=== PATIENT | female | born 1990 | race African-American/Black ===

== ENCOUNTER 2021-10-12 10:44 | Outpatient (CLI) | payer OTHER | END 2021-10-12 12:00 | disposition home or self-care (01) | LOC: PRENATAL 10:44 | PROVIDERS: ATTEND Obstetrics & Gynecology Maternal & Fetal Medicine | DX: O36.80X0 Pregnancy with inconclusive fetal viability, not applicable or unspecified (principal); Z36.0 Encounter for antenatal screening for chromosomal anomalies; Z3A.13 13 weeks gestation of pregnancy ==

== ENCOUNTER 2021-12-11 08:05 | Outpatient (CLI) | payer OTHER | END 2021-12-11 09:30 | disposition home or self-care (01) | LOC: PRENATAL 08:05 | PROVIDERS: ATTEND Obstetrics & Gynecology Maternal & Fetal Medicine | DX: O35.0XX0 Maternal care for (suspected) central nervous system malformation in fetus, not applicable or unspecified (principal); O35.3XX0 Maternal care for (suspected) damage to fetus from viral disease in mother, not applicable or unspecified; O99.210 Obesity complicating pregnancy, unspecified trimester; Z91.013 Allergy to seafood; Z3A.21 21 weeks gestation of pregnancy ==

== ENCOUNTER 2021-12-17 09:31 | Day surgery (SDC) | payer OTHER ==
[~2021-12-17] VITALS: Ht 170.2 cm; Wt 114.3 kg
[2021-12-18] MEDS ORDERED: VALACYCLOVIR500 MG (10:16)
== END 2021-12-17 20:50 | disposition home or self-care (01) ==
LOC: O/R 09:31 → CIR.AMB 09:31 → LDR 09:31 → EDSTATUS 16:15 → LDR 17:53 → CIR.AMB 20:50 → O/R 12-18 08:15 → LDR 12-18 08:15 → O/R 12-18 08:15
PROVIDERS: ATTEND Obstetrics & Gynecology Maternal & Fetal Medicine
DX: O34.32 Maternal care for cervical incompetence, second trimester (principal); Z3A.21 21 weeks gestation of pregnancy; O26.872 Cervical shortening, second trimester; Z91.013 Allergy to seafood

== ENCOUNTER 2022-01-17 14:54 | Outpatient (CLI) | payer OTHER ==
[~2022-01-17 14:54] MED LIST: VALACYCLOVIR500 MG
== END 2022-01-17 16:15 | disposition home or self-care (01) ==
LOC: PRENATAL 14:54
PROVIDERS: ATTEND Obstetrics & Gynecology Maternal & Fetal Medicine
DX: O26.849 Uterine size-date discrepancy, unspecified trimester (principal); O99.210 Obesity complicating pregnancy, unspecified trimester; O26.879 Cervical shortening, unspecified trimester; Z3A.26 26 weeks gestation of pregnancy

== ENCOUNTER 2022-02-27 08:46 | Outpatient (CLI) | payer OTHER | END 2022-02-27 10:21 | disposition home or self-care (01) | LOC: PRENATAL 08:46 | PROVIDERS: ATTEND Obstetrics & Gynecology Maternal & Fetal Medicine | DX: O26.849 Uterine size-date discrepancy, unspecified trimester (principal); O36.8199 Decreased fetal movements, unspecified trimester, other fetus; O35.9XX0 Maternal care for (suspected) fetal abnormality and damage, unspecified, not applicable or unspecified; Z3A.13 13 weeks gestation of pregnancy ==

== ENCOUNTER 2022-04-01 08:55 | Inpatient (IN) | payer OTHER ==
[~2022-04-01] VITALS: Ht 170.2 cm; Wt 118.4 kg
[2022-04-01] MEDS ORDERED: PRENATAL + DHA1 EAC1 PO (15:31)
== END 2022-04-03 16:45 | disposition home or self-care (01) | DRG 768 ==
LOC: OBS/DEL 08:55 → LDR 11:32 → OB/GYN 11:32 → OBS/DEL 11:32 → OB/GYN 18:05
PROVIDERS: ADMIT Obstetrics & Gynecology; ATTEND Obstetrics & Gynecology
PROC: 10E0XZZ Delivery of Products of Conception, External Approach (ICD-10-PCS; principal; 2022-04-01)
PROC: 0UCC7ZZ Extirpation of Matter from Cervix, Via Natural or Artificial Opening (ICD-10-PCS; 2022-04-01)
PROC: 4A1HXCZ Monitoring of Products of Conception, Cardiac Rate, External Approach (ICD-10-PCS; 2022-04-01)
DX: O60.14X0 Preterm labor third trimester with preterm delivery third trimester, not applicable or unspecified (principal); O34.33 Maternal care for cervical incompetence, third trimester; Z37.0 Single live birth; Z3A.36 36 weeks gestation of pregnancy; Z20.822 Contact with and (suspected) exposure to COVID-19

== ENCOUNTER 2023-11-07 17:02 | Emergency (ER) | payer OTHER ==
[~2023-11-07] VITALS: Ht 170.2 cm; Wt 116.1 kg
[~2023-11-07 17:02] MED LIST changes: +PRENATAL + DHA1 EAC1 PO
[2023-11-07 17:44] LABS: HEMATOCRIT 32.8 % (36.0-45.00); HEMOGLOBIN 10.9 g/dL (12.0-15.00); MEAN CELL VOLUME 79.3 fL (80.00-100.00); MEAN CORPUSCULAR HEMOGLOBIN 26.3 pg (27.00-32.0); MEAN CORPUSCULAR HGB CONC 33.1 g/dl (32.0-36.0); PLATELET COUNT 318 K/uL (150-450); RED BLOOD COUNT 4.14 M/uL (4.00-6.00); RED CELL DISTRIBUTION WIDTH 14.3 % (11.5-14.5)
[2023-11-07 17:45] LABS: URINE APPEARANCE Clear; URINE BILIRRUBIN Negative (NEGATIVE); URINE BLOOD Negative; URINE COLOR Yellow; URINE EPITHELIAL CELLS 55.4 uL (0.0-38.8); URINE GLUCOSE Negative (NEGATIVE); URINE KETONE Negative (NEGATIVE); URINE LEUKOCYTE Moderate; URINE NITRATE Negative; URINE PROTEIN Negative (NEGATIVE); URINE WBC 136.4 uL (0.0-23.2)
[2023-11-07 17:47] LABS: URINE RBC 0.9 uL (0.0-20.8)
[2023-11-07 18:00] LABS: CALCIUM 8.7 mg/dL (8.5-10.1); CREATININE SERUM 0.71 mg/dL (0.55-1.02); GFR 96.01; POTASSIUM 3.8 mEq/L (3.5-5.1)
[2023-11-07] MEDS ORDERED: CEFTRIAXONE SODIUM 1,000 MG VIAL IM STA (18:25)
[2023-11-07] MEDS ORDERED: CEFTRIAXONE SODIUM 1,000 MG VIAL ONE (18:28)
== END 2023-11-07 18:34 | disposition home or self-care (01) ==
LOC: ER 17:02
PROVIDERS: General Practice
DX: N39.0 Urinary tract infection, site not specified (principal); Z91.013 Allergy to seafood